=== PATIENT | female | born 1955 | race Two or more races ===

== ENCOUNTER 2018-09-23 09:31 | Outpatient (CLI) | payer OTHER | END 2018-09-23 09:41 | disposition home or self-care (01) | LOC: MAMO-SONO 09:31 | DX: N64.4 Mastodynia (principal); Z12.31 Encounter for screening mammogram for malignant neoplasm of breast ==

== ENCOUNTER 2021-11-30 20:00 | Emergency (ER) | payer OTHER ==
[~2021-11-30] VITALS: Ht 170.2 cm; Wt 79.4 kg
[2021-12-01] MEDS ORDERED: PHENERGAN25 MG PO (10:21)
[2021-12-01] MEDS ORDERED: PEPCID AC20 MG PO (10:21)
== END 2021-12-01 18:01 | disposition home or self-care (01) ==
LOC: ER 20:00
DX: U07.1 COVID-19 (principal); E86.0 Dehydration; E87.6 Hypokalemia

== ENCOUNTER 2021-12-03 09:00 | Outpatient (CLI) | payer OTHER ==
[~2021-12-03 09:00] MED LIST: PEPCID AC20 MG PO; PHENERGAN25 MG PO
== END 2021-12-03 10:10 | disposition home or self-care (01) ==
LOC: ASH CLINIC 09:00
PROVIDERS: ATTEND Internal Medicine
DX: U07.1 COVID-19 (principal)

== ENCOUNTER → 2022-04-28 | Emergency (ER) | payer OTHER ==
[~2022-04-28] VITALS: Ht 165.1 cm; Wt 81.6 kg
[~2022-04-28] MED LIST changes: +LISINOPRIL-HCT1 EAC1 PO
== END | disposition home or self-care (01) ==
LOC: ER 11:26
DX: R07.89 Other chest pain (principal); I10 Essential (primary) hypertension

== ENCOUNTER → 2024-07-02 | Emergency (ER) | payer OTHER ==
[~2024-07-02] VITALS: Ht 165.1 cm; Wt 80.7 kg
[~2024-07-02] MED LIST changes: +FAMOTIDINE/PF 20 MG/2 ML VIAL IV ONE; +ONDANSETRON HCL 2 MG/ML VIAL IV ONE
== END | disposition left against medical advice (07) ==
LOC: ER 13:53
DX: R11.0 Nausea (principal); T50.905A Adverse effect of unspecified drugs, medicaments and biological substances, initial encounter; I10 Essential (primary) hypertension
CPT/HCPCS: 96365; 99282; J2405; J3490

== ENCOUNTER 2024-07-03 14:51 | Emergency (ER) | payer OTHER ==
[~2024-07-03] VITALS: Ht 165.1 cm; Wt 70.8 kg
[~2024-07-03 14:51] MED LIST changes: -FAMOTIDINE/PF 20 MG/2 ML VIAL IV ONE; -ONDANSETRON HCL 2 MG/ML VIAL IV ONE
[2024-07-03] MEDS ORDERED: PROMETHAZINE HCL 50 MG/ML AMPUL IM ONE (15:30)
[2024-07-03] MEDS ORDERED: METOCLOPRAMIDE HCL 5 MG/ML VIAL IM ONE (15:30)
[2024-07-03 15:54] LABS: HEMATOCRIT 40.3 % (36.0-45.00); HEMOGLOBIN 13.6 g/dL (12.0-15.00); MEAN CELL VOLUME 84.3 fL (80.00-100.00); MEAN CORPUSCULAR HEMOGLOBIN 28.5 pg (27.00-32.0); MEAN CORPUSCULAR HGB CONC 33.8 g/dl (32.0-36.0); PLATELET COUNT 251 K/uL (150-450); RED BLOOD COUNT 4.78 M/uL (4.00-6.00); RED CELL DISTRIBUTION WIDTH 13.3 % (11.5-14.5)
[2024-07-03 15:58] LABS: PH,URINE 6.5 (5.0-8.0); URINE APPEARANCE Clear; URINE BILIRRUBIN Negative (NEGATIVE); URINE BLOOD Negative; URINE COLOR Yellow; URINE GLUCOSE Negative (NEGATIVE); URINE KETONE Negative (NEGATIVE); URINE LEUKOCYTE Trace; URINE NITRATE Negative; URINE PROTEIN Negative (NEGATIVE); URINE UROBILINOGEN 0.2 E.U./dl
[2024-07-03 16:01] LABS: URINE EPITHELIAL CELLS 18.8 uL (0.0-38.8); URINE RBC 10.5 uL (0.0-20.8)
[2024-07-03 16:17] LABS: ALBUMIN 3.9 gm/dL (3.4-5.0); BILIRUBIN TOTAL 0.44 mg/dL (0.3-1.2); CALCIUM 9.6 mg/dL (8.5-10.1); CREATININE SERUM 1.16 mg/dL (0.55-1.02); GFR 46.46; POTASSIUM 3.35 mEq/L (3.5-5.1); TOTAL PROTEIN 7.9 gm/dL (6.4-8.2)
== END 2024-07-03 16:51 | disposition home or self-care (01) ==
LOC: ER 14:53
PROVIDERS: General Practice
DX: R11.0 Nausea (principal); T50.905A Adverse effect of unspecified drugs, medicaments and biological substances, initial encounter; I10 Essential (primary) hypertension